=== PATIENT | female | born 1975 | race Caucasian/White ===

== ENCOUNTER 2017-05-29 02:03 | Emergency (ER) | payer SELFPAY ==
[~2017-05-29] VITALS: Ht 167.6 cm; Wt 72.7 kg
[~2017-05-29 02:03] MED LIST: ASPIRIN 32325 MG/TA1 PO; BCP; NORCO 325 MG-51 TAB PO; PERCOCET 325 MG1 TA2 PO; ZOFRAN ODT4 MG PO; ZOLOFT 50MG50 MG PO
[2017-05-29 02:25] LABS: COLLECTION METHOD CATHETER
[2017-05-29 02:30] LABS: MEAN CELL VOLUME 114 fl (80.0-100.0); MEAN CORPUSCULAR HGB CONC 27 g/dl (33.0-37.0); MEAN PLATELET VOLUME 10.2 fl (7.4-10.4); PLATELET COUNT 239 K/mm3 (130-400); RED BLOOD COUNT 1.93 M/mm3 (4.10-5.30); REDCELL DISTRIBUTION WIDTH-CV 25.9 % (11.5-14.5)
[2017-05-29 02:33] LABS: INR 1.4 (0.8-3.0); PROTHROMBIN TIME 16.5 SECONDS (9.7-12.8)
[2017-05-29 02:39] LABS: AMORPHOUS CRYSTAL Present /uL; GRANULAR CAST >12 /lpf; MUCOUS Present /lpf; PH 5 (5-8); SQUAMOUS EPITHELIAL 0-2 /hpf; URINE APPEARANCE Hazy; URINE BACTERIA Rare /hpf; URINE BILIRUBIN Negative (NEGATIVE); URINE BLOOD 2+ (NEGATIVE); URINE COLOR Yellow; URINE GLUCOSE Negative (NEGATIVE); URINE KETONE 2+ (NEGATIVE); URINE LEUKOCYTE ESTERASE Negative (NEGATIVE); URINE NITRATE Negative (NEGATIVE); URINE PROTEIN(semi-quant) 3+ (NEGATIVE); URINE RBC None Seen /hpf; URINE UROBILINOGEN Negative (NEGATIVE)
[2017-05-29 02:40] LABS: ALANINE AMINOTRANSFERASE 219 U/L (9-52); ALCOHOL(ethanol),MEDICAL 196 mg/dL; ALKALINE PHOSPHATASE 161 U/L (50-136); BILIRUBIN,TOTAL 2.9 mg/dL (0.0-1.0); BLOOD UREA NITROGEN 11 mg/dL (7-17); CALCIUM 8.5 mg/dL (8.4-10.2); CHLORIDE 102 mmol/L (98-107); CREATININE, serum 1.36 mg/dL (0.52-1.25); GLUCOSE 221 mg/dL (74-106); MAGNESIUM 3.2 mg/dL (1.6-2.3); SODIUM 139 mmol/L (137-145); TOTAL PROTEIN 6.4 gm/dL (6.4-8.2)
[2017-05-29 02:47] LABS: HEMOGLOBIN 5.9 g/dl (12.5-16.0); MEAN CORPUSCULAR HEMOGLOBIN 31 pg (27.0-31.0)
[2017-05-29 02:48] LABS: ACETAMINOPHEN < 10 ug/mL (10-30); CARBON DIOXIDE < 5 mmol/L (22-30); PHOSPHOROUS 12.6 mg/dL (2.5-4.5); POTASSIUM 6.2 mmol/L (3.4-5.0); SALICYLATE < 1.0 mg/dL
[2017-05-29 02:50] LABS: TROPONIN-I 0.015 ng/mL (0.000-0.034)
[2017-05-29 02:56] LABS: ARTERIAL BLD GAS TCO2 CT 20.2; ARTERIAL BLOOD GAS BASE EXCESS -11.4 (-2-2); ARTERIAL BLOOD GAS HCO3 18.1 meq/L (22-26); ARTERIAL BLOOD GAS PCO2 69.3 mmHg (35-45); ARTERIAL BLOOD GAS PO2 431.1 mmHg (80-100); ARTERIAL BLOOD GAS pH 7.04 (7.35-7.45)
[2017-05-29 02:57] LABS: ANISOCYTOSIS 4+; BAND 20 % (0-10); LYMPHOCYTE 14 % (20.0-51.0); METAMYELOCYTE 2 % (0-0); NEUTROPHILS 60 % (42.0-75.2); NUCLEATED RED BLOOD CELL 3 (0-6); PLATELET ESTIMATE NORMAL (NORMAL)
[2017-05-29 02:58] LABS: HYPOCHROMIA 2+; TEAR DROP CELLS 1+
[2017-05-29 03:12] LABS: TRICYCLIC ANTIDEPRESS URINE NEGATIVE
[2017-05-29 03:25] VITALS: BP 93/67; PULSE 84; TEMP 31.4
[2017-05-29 03:40] VITALS: BP 75/54; PULSE 85; TEMP 31.4
[2017-05-29 03:46] LABS: AST,SGOT 1751 U/L (15-37)
[2017-05-29 04:41] LABS: ARTERIAL BLD GAS O2 SATURATION 93.8 % (92-100); ARTERIAL BLD GAS TCO2 CT 3.4; ARTERIAL BLOOD GAS BASE EXCESS -33.7 (-2-2); ARTERIAL BLOOD GAS HCO3 2.6 meq/L (22-26)
[2017-05-29 04:42] LABS: ARTERIAL BLOOD GAS PO2 132.7 mmHg (80-100); ARTERIAL BLOOD GAS pH 6.62 (7.35-7.45)
[2017-05-29 05:10] VITALS: BP 112/90; PULSE 90; TEMP 31.6
[2017-05-29 05:24] LABS: INFLUENZA A NEGATIVE; INFLUENZA B NEGATIVE
[2017-05-29 05:45] VITALS: BP 112/90; PULSE 86; TEMP 31.8
== END 2017-05-29 05:45 | disposition short-term general hospital (02) ==
LOC: COL.ER 02:03
PROVIDERS: Emergency Medicine; Physician Assistant
DX: A41.9 Sepsis, unspecified organism (principal); R65.21 Severe sepsis with septic shock; I46.9 Cardiac arrest, cause unspecified; R40.20 Unspecified coma; R57.9 Shock, unspecified; T68.XXXA Hypothermia, initial encounter; E03.9 Hypothyroidism, unspecified; D64.9 Anemia, unspecified; K92.2 Gastrointestinal hemorrhage, unspecified; R00.1 Bradycardia, unspecified; E87.2 Acidosis; R74.8 Abnormal levels of other serum enzymes; J18.9 Pneumonia, unspecified organism; D68.9 Coagulation defect, unspecified; K85.90 Acute pancreatitis without necrosis or infection, unspecified; K76.0 Fatty (change of) liver, not elsewhere classified; K80.20 Calculus of gallbladder without cholecystitis without obstruction; R40.2432 Glasgow coma scale score 3-8, at arrival to emergency department
CPT/HCPCS: C9113; J0330; J1265; J1720; J2185; J2250; J3010; J3370; J7030; J7050; P9016